=== PATIENT | male | born 1960 | race African-American/Black ===

== ENCOUNTER → 2016-11-26 | Outpatient (CLI) | payer OTHER ==
[~2016-11-26] MED LIST: ACETAMINOPHEN PO; AMLODIPINE BESY10 MG PO; AMLODIPINE BESYL5 MG PO; FISH OIL 1,0001 CAP PO; FISH OIL 1,0001 EAC3 PO; LEVAQUIN750 MG PO; LISINOPRIL20 MG PO; LOPID600 MG PO; MULTIVITAMIN1 UDCAP PO; PRINIVIL40 MG PO
--- NOTE | ~2016-11-26 | CT2 ---
[facility] A Service of [facility] & [facility] RADIOLOGY TEXT RESULTS PATIENT: EUFEMIA GRAMAJO LOCATION: CCAT : 62 UNIT #: [id number] AGE: [address]: Peggy Menchaca MD SEX: M ORDER DR: [id number] [facility] [address] [place], [place] [address] [id number] O MR#: [id number] Acc #: [id number] NAME: EUFEMIA GRAMAJO : 1960 SEX: M STUDY DATE/TIME: 11/26/2016 6:57 UNIT: [facility]AT ROOM: STUDY DESCRIPTION: CT Abd and Pelv W Cont Attending Physician: Peggy Menchaca M.D., Ph.D. Referring Physician: Peggy Menchaca M.D., Ph.D. Ordering Physician: Peggy Menchaca M.D., Ph.D. Primary Care Physician: No Primary Care Physician MEDICAL IMAGING REPORT This report is preliminary unless electronic signature is present EXAM CT abdomen and pelvis with contrast. INDICATION Liver cancer. Liver cancer diagnosed 2014. Patient is status post 4th round of therapy. Observation for response to therapy metastatic disease. PROCEDURE Contrast-enhanced CT abdomen and pelvis. This CT exam was performed with one or more of the following radiation dose reduction techniques: automatic exposure control, adjustment of mA and/or kV according to patient size, and iterative reconstruction. COMPARISON 04/22/16 FINDINGS ABDOMEN WITH CONTRAST: There is a 7 mm nodule inferior right upper lobe. There is a small nodule in the right middle lobe and a 1.4 cm nodule in the right lower lobe. These nodules are apparently new compared to the prior. Extensive multifocal metastatic disease involving the entire right hepatic lobe as well as a segment 4 of the liver. Overall tumor burden is difficult to measure but does appear increased compared with the prior. There are a few lesions in the left lobe with 1 in the far lateral segment measuring 2.1 cm. This lesion previously measured approximately 1.3 cm. Abnormal lymph nodes in the omari hepatis are new or significantly increased from the prior. Stephania conglomerate portocaval region measures 5.1 x 2.8 cm. The spleen, kidneys, adrenal glands, pancreas are unremarkable. [facility]. [facility] A Service of [facility] & [facility] RADIOLOGY TEXT RESULTS PATIENT: EUFEMIA GRAMAJO LOCATION: CCAT : 62 UNIT #: [id number] AGE: [address]: Peggy Menchaca MD SEX: M ORDER DR: The right portal vein is not well seen and may be involved by tumor that is difficult to assess on this single phase study. The bowel loops are nondilated. Appendix is normal. PELVIS WITH CONTRAST: Trace amount of fluid in the pelvis. No pelvic mass or fluid. No aggressive-appearing bone lesions. IMPRESSION 1. Interval progression of diffuse multifocal hepatic metastatic disease predominately involving the entire right hepatic lobe. 2. New or significantly increased size of large bulky nodes in the omari hepatis and portacaval regions. Dictated by... Francis Jason M.D. THIS IS AN ELECTRONICALLY VERIFIED REPORT Francis Jason M.D. at 11/27/2016 3:08 PM Deandra TD: 11/26/2016 17:07 JOB #: [id number] MEDICAL IMAGING REPORT Page 1 of 1 COPY
== END | disposition home or self-care (01) ==
LOC: CCAT 05:50
DX: C22.8 Malignant neoplasm of liver, primary, unspecified as to type (principal); C78.7 Secondary malignant neoplasm of liver and intrahepatic bile duct
CPT/HCPCS: 74177; Q9967

== ENCOUNTER → 2017-01-28 | Outpatient (CLI) | payer OTHER ==
[2017-01-28 12:15] LABS: HEMATOCRIT 38.6 % (38.0-50.0); HEMOGLOBIN 12.9 gm/dL (13.0-16.0); MEAN CELL VOLUME 100.5 FL (83-96); MEAN CORPUSCULAR HEMOGLOBIN 33.6 PG (28-34); MEAN CORPUSCULAR HGB CONC 33.5 g/dL (30-36); MEAN PLATELET VOLUME 10.2 FL (6.5-11.5); RED BLOOD COUNT 3.84 X10e (3.90-5.60); RED CELL DISTRIBUTION WIDTH 14.6 % (11.0-15.5); WHITE BLOOD COUNT 7.7 X10e3 (4.0-10.5)
[2017-01-28 12:54] LABS: ALBUMIN SERUM 3.5 g/dL (3.5-5.0); BILIRUBIN,TOTAL 0.6 mg/dL (0.2-2.0); CALCIUM SERUM 9.6 mg/dL (8.4-10.2); CREATININE SERUM 0.6 mg/dL (0.6-1.4); GLOM FILT RATE Estimated 131.2 mL/min (>60); POTASSIUM 3.7 mmol/L (3.5-5.1); PROTEIN TOTAL SERUM 7.8 g/dL (6.0-8.3)
== END | disposition home or self-care (01) ==
LOC: CLAB 11:39
PROVIDERS: Internal Medicine Hematology & Oncology
DX: D64.9 Anemia, unspecified (principal); C22.8 Malignant neoplasm of liver, primary, unspecified as to type
CPT/HCPCS: 36415; 80053; 82105; 82140; 85027